=== PATIENT | female | born 1930 | race Caucasian/White ===

== ENCOUNTER → 2017-03-17 | Outpatient (CLI) | payer OTHER, MEDICARE ==
[~2017-03-17] MED LIST: NOHOMEMEDICATIONS; XANAX 0.25 MG0.25 MG PO
[2017-03-17 09:52] LABS: CREATININE 1.1 mg/dL (0.6-1.0)
== END ==
LOC: MRI 09:08
PROVIDERS: Otolaryngology
DX: H90.3 Sensorineural hearing loss, bilateral (principal)

== ENCOUNTER → 2017-10-25 | Outpatient (CLI) | payer OTHER, MEDICARE ==
[~2017-10-25] MED LIST changes: +HYDROCHLOROTH12.5 M1 PO; +LEVAQUIN 250 M250 MG PO; +LEVAQUIN 500 M500 M5 PO; +TESSALON PERLE100 MG PO
== END ==
LOC: RAD 11:18
DX: J84.10 Pulmonary fibrosis, unspecified (principal); J98.11 Atelectasis; M41.85 Other forms of scoliosis, thoracolumbar region

== ENCOUNTER 2017-10-29 11:06 | Emergency (ER) | payer OTHER, MEDICARE ==
[~2017-10-29] VITALS: Ht 165.1 cm; Wt 68.0 kg
--- NOTE | ~2017-10-29 | EKG ---
[address] [place] [address] ELECTROCARDIOGRAM REPORT Name: CHARITO KAM [id number] Admission: 10/29/17 Attend Phys: Discharge: 10/29/17 Date of : [birth year] Report #: [id number] THIS REPORT FOR: //name// [facility] ED Test Date: 2017-10-29 Test Time: 12:42:25 Pat Name: CHARITO KAM Department: Room: Gender: F Manager Of Customer Billing: CARLOZ : 1930 Requested By: Marcellus Do Order Number: [id number] MD: Sid Portillo Measurements Intervals [place] Rate: 66 P: MA: QRS: -26 QRSD: 82 T: 32 QT: 380 QTc: 399 Interpretive Statements Sinus rhythm Borderline left axis deviation Nonspecific ST segment abnormalities Compared to ECG 02/08/2010 18:41:10 No significant change Electronically Signed On 10-29-2017 23:04:21 [employer] by Sid oPrtillo [email or web address] <ELECTRONICALLY SIGNED> By: Sid Portillo MD 10/29/17 [id number] Sid Portillo MD /JAROD
[~2017-10-29 11:06] MED LIST changes: -HYDROCHLOROTH12.5 M1 PO; -LEVAQUIN 250 M250 MG PO; -LEVAQUIN 500 M500 M5 PO; -TESSALON PERLE100 MG PO
[2017-10-29] MEDS ORDERED: LEVAQUIN 500 M500 M5 PO (11:20)
[2017-10-29] MEDS ORDERED: HYDROCHLOROTH12.5 M1 PO (11:21)
[2017-10-29 12:55] LABS: HEMATOCRIT 45.3 % (37.0-47.0); HEMOGLOBIN 16.2 gm/dL (12.0-15.0); MCH 31.3 pg (26.0-34.0); MCHC 35.8 g/dL (28.0-37.0); MCV 87.4 fL (80.0-100.0); PLATELET COUNT 173 thou/uL (150-400); RBC 5.18 mil/uL (4.20-5.00); RDW 13.4 % (10.5-14.5); WBC 4.1 thou/uL (4.0-11.0)
[2017-10-29 13:02] LABS: ANION GAP 10 mmol/L (7-16); BUN 25 mg/dL (7-18); CALCIUM 9.3 mg/dL (8.5-10.1); CHLORIDE 99 mmol/L (98-107); CO2 24 mmol/L (21-32); CREATININE 1.2 mg/dL (0.6-1.0); GLUCOSE 110 mg/dL (74-106); POTASSIUM 4.2 mmol/L (3.5-5.1); SODIUM 133 mmol/L (136-145)
[2017-10-29 13:10] LABS: TROPONIN-I < 0.04 ng/mL (<0.06)
[2017-10-29 13:28] LABS: ABSOLUTE NEUTROPHILS 2.7 thou/uL (1.4-8.2); ATYPICAL LYMPHS 1 %
[2017-10-29 13:43] LABS: URINE BILIRUBIN NEGATIVE (Negative); URINE BLOOD NEGATIVE (Negative); URINE CLARITY CLEAR; URINE COLOR YELLOW; URINE GLUCOSE-RANDOM* NEGATIVE (Negative); URINE KETONES NEGATIVE (Negative); URINE LEUKOCYTES-REFLEX NEGATIVE (Negative); URINE NITRITE-REFLEX NEGATIVE (Negative); URINE PROTEIN (DIPSTICK) NEGATIVE (Negative); URINE SPECIFIC GRAVITY 1.015 (1.005-1.035); URINE UROBILINOGEN 0.2 E.U./dl (0.2-1.0)
[2017-10-29] MEDS ORDERED: LEVAQUIN 250 M250 MG PO (15:41)
[2017-10-29] MEDS ORDERED: TESSALON PERLE100 MG PO (15:42)
== END 2017-10-29 16:00 | disposition home or self-care (01) ==
LOC: ER 11:06
PROVIDERS: Emergency Medicine
DX: J18.8 Other pneumonia, unspecified organism (principal); I10 Essential (primary) hypertension; F41.9 Anxiety disorder, unspecified